=== PATIENT | female | born 1975 | race Caucasian/White ===

== ENCOUNTER → 2020-04-01 | Outpatient (CLI) | payer BC, OTHER ==
[~2020-04-01] MED LIST: ALLEGRA D PO; BUTALB-ACETAMI1 EAC1 PO; CRESTOR5 MG PO; KLONOPIN0.5 MG PO; MELOXICAM15 MG PO
== END ==
LOC: KOH-I 16:00
DX: M77.11 Lateral epicondylitis, right elbow (principal); M25.521 Pain in right elbow; S56.511A Strain of other extensor muscle, fascia and tendon at forearm level, right arm, initial encounter; X58.XXXA Exposure to other specified factors, initial encounter
CPT/HCPCS: 73221

== ENCOUNTER → 2020-05-13 | Day surgery (SDC) | payer BC, OTHER | END | disposition home or self-care (01) | LOC: OR 05:59 | DX: Z12.11 Encounter for screening for malignant neoplasm of colon (principal); E78.5 Hyperlipidemia, unspecified; F41.8 Other specified anxiety disorders; F17.210 Nicotine dependence, cigarettes, uncomplicated; E66.01 Morbid (severe) obesity due to excess calories; E55.9 Vitamin D deficiency, unspecified; Z79.899 Other long term (current) drug therapy; Z88.8 Allergy status to other drugs, medicaments and biological substances; Z20.822 Contact with and (suspected) exposure to COVID-19; Z68.26 Body mass index [BMI] 26.0-26.9, adult | CPT/HCPCS: 36415; 84703; J2704; J7030 ==

== ENCOUNTER 2021-12-31 15:38 | Emergency (ER) | payer BC ==
[2021-12-31] MEDS ORDERED: ONDANSETRON ODT4 MG SL (20:27)
[2021-12-31] MEDS ORDERED: IBUPROFEN800 MG PO (20:27)
[2021-12-31] MEDS ORDERED: BACTRIM DS TAB1 EACH PO (20:27)
== END 2021-12-31 20:38 | disposition home or self-care (01) ==
LOC: ER1 15:38
DX: L02.412 Cutaneous abscess of left axilla (principal); Z88.1 Allergy status to other antibiotic agents
CPT/HCPCS: 10060; 82962; 96374; 96375; 99283; J1100; J1885; J2405